=== PATIENT | male | born 1965 | race Caucasian/White ===

== ENCOUNTER 2019-10-08 13:13 | Inpatient (IN) | payer MEDICARE, MEDICAID ==
[~2019-10-08] VITALS: Ht 167.6 cm; Wt 63.9 kg
--- NOTE | 2019-10-08 13:47 | NUR ---
PT CAME IN CO OF CHEST PAIN AND SOB SINCE LAST NIGHT. PT HAS HX OF COPD. MOVED TO [place] RECENTLY FROM [place] AND IS NORMALLY SUPPOSED TO BE ON 2 LITERS OF 02 ALL THE TIME BUT HE RAN OUT. HE ALSO RAN OUT OF HIS RX FOR HIS COPD. EKG DONE. PT IS 100% ON 2 LITERS VIA NC. BLANKET PROVIDED. CALL LIGHT WITHIN REACH
[2019-10-08] MEDS ORDERED: methylPREDNISolone SOD SUCC 125 MG/2 ML ONE (13:52)
[2019-10-08] MEDS ORDERED: FENTANYL PF 100 MCG/2ML ONE (13:52)
[2019-10-08] MEDS ORDERED: FENTANYL PF 100 MCG/2ML IV ONE (14:00)
[2019-10-08] MEDS ORDERED: methylPREDNISolone SOD SUCC 125 MG/2 ML IV ONE (14:00)
[2019-10-08 14:05] LABS: BASOPHILS # (AUTO) 0.03 x10^3/uL (0-0.1); BASOPHILS % (AUTO) 0 % (0-1); EOSINOPHILS # (AUTO) 0.11 x10^3/uL (0-0.4); EOSINOPHILS % (AUTO) 1 % (1-7); LYMPHOCYTES # (AUTO) 2.12 x10^3/uL (1-3.4); LYMPHOCYTES % (AUTO) 18 % (22-44); MD NO; MEAN CORPUSCULAR HEMOGLOBIN 31.2 pg (27.5-34.5); MEAN CORPUSCULAR HGB CONC 32.6 g/dL (33.2-36.2); MEAN CORPUSCULAR VOLUME 95.7 fL (81-97); MEAN PLATELET VOLUME 8.7 fL (7.4-10.4); MONOCYTES % (AUTO) 11 % (2-9); NEUTROPHILS # (AUTO) 8.08 x10^3/uL (1.8-6.8); NEUTROPHILS % (AUTO) 69 % (42-75); PLATELET COUNT 217 x10^3/uL (130-400); RED BLOOD COUNT 5.15 x10^6/uL (4.38-5.82)
[2019-10-08 14:15] LABS: ALBUMIN 2.9 g/dL (3.4-5.0); CALCIUM 9.3 mg/dL (8.5-10.1); CHLORIDE 102 mmol/L (98-107); CREATININE 0.87 mg/dL (0.7-1.3)
[2019-10-08 14:18] LABS: D-DIMER 0.49 ug/mlFEU (0.00-0.52); INTERNATIONAL NORMALIZED RATIO 1.09 (0.93-1.1); PROTHROMBIN TIME 11.6 Seconds (9.6-11.5)
[2019-10-08 14:19] LABS: TROPONIN I < 0.015 ng/mL (0.000-0.045)
[2019-10-08 14:22] LABS: ANION GAP 7 mmol/L (5-15)
[2019-10-08] MEDS ORDERED: ALBUTEROL SULFATE 2.5 MG/3 ML NPPB SCH (15:30)
[2019-10-08] MEDS ORDERED: ONDANSETRON 2MG/ML, 2ML IVPush PRN (16:00)
[2019-10-08] MEDS ORDERED: ONDANSETRON ODT 4 MG PO PRN (16:00)
[2019-10-08] MEDS ORDERED: POLYETHYLENE GLYCOL 17 GM PACKET PO PRN (16:00)
[2019-10-08] MEDS ORDERED: ACETAMINOPHEN 325 MG TABLET PO PRN (16:00)
[2019-10-08] MEDS ORDERED: DOCUSATE 100 MG CAPSULE PO PRN (16:00)
--- NOTE | 2019-10-08 16:25 | NUR ---
PT RESTING IN [facility]. WATCHING TV. AWAITING A BED TO OPEN UP UPSTAIRS
[2019-10-08 17:13] VITALS: BP 132/87
[2019-10-08] MEDS: ENOXAPARIN 40 MG/0.4 ML SQ SCH (18:02)
[2019-10-08] MEDS ORDERED: BUDESONIDE 0.5 MG/2 ML INHA NPPB SCH (21:00)
[2019-10-08] MEDS: BUDESONIDE 0.5 MG/2 ML INHA INH SCH (21:00)
[2019-10-08 21:34] VITALS: BP 116/84
[2019-10-09 02:00] VITALS: BP 124/71
[2019-10-09 06:52] VITALS: BP 112/66
[2019-10-09] MEDS: BUDESONIDE 0.5 MG/2 ML INHA INH SCH ×2 (10:05→18:37)
[2019-10-09] MEDS ORDERED: DIVA500T2 PO (10:44)
[2019-10-09] MEDS ORDERED: GABA600T7 PO (10:44)
[2019-10-09] MEDS ORDERED: PRAZ1CAP2 PO (10:44)
[2019-10-09 12:00] VITALS: BP 116/81
[2019-10-09] MEDS: GABAPENTIN 300 MG CAPSULE PO SCH ×2 (15:08→20:26)
[2019-10-09] MEDS: ENOXAPARIN 40 MG/0.4 ML SQ SCH (15:08)
[2019-10-09] MEDS: DOXYCYCLINE 100MG CAP PO SCH ×2 (15:08→20:28)
[2019-10-09 19:25] VITALS: BP 117/76
[2019-10-09] MEDS ORDERED: PRAZOSIN 1 MG CAPSULE PO SCH (21:00)
[2019-10-09] MEDS ORDERED: DIVALPROEX 500 MG TABLET.DR PO SCH (21:00)
[2019-10-10 03:00] VITALS: BP 100/65
[2019-10-10 06:12] LABS: BASOPHILS # (AUTO) 0.01 x10^3/uL (0-0.1); BASOPHILS % (AUTO) 0 % (0-1); EOSINOPHILS # (AUTO) 0.01 x10^3/uL (0-0.4); EOSINOPHILS % (AUTO) 0 % (1-7); LYMPHOCYTES # (AUTO) 2.71 x10^3/uL (1-3.4); LYMPHOCYTES % (AUTO) 20 % (22-44); MD NO; MEAN CORPUSCULAR HEMOGLOBIN 31.1 pg (27.5-34.5); MEAN CORPUSCULAR HGB CONC 32.3 g/dL (33.2-36.2); MEAN CORPUSCULAR VOLUME 96.2 fL (81-97); MEAN PLATELET VOLUME 8.3 fL (7.4-10.4); MONOCYTES # (AUTO) 1.24 x10^3/uL (0.2-0.8); MONOCYTES % (AUTO) 9 % (2-9); NEUTROPHILS # (AUTO) 9.33 x10^3/uL (1.8-6.8); NEUTROPHILS % (AUTO) 70 % (42-75); PLATELET COUNT 278 x10^3/uL (130-400); RED BLOOD COUNT 4.74 x10^6/uL (4.38-5.82); RED CELL DISTRIBUTION WIDTH 14.2 % (9.4-14.8)
[2019-10-10 06:17] LABS: ALBUMIN 2.5 g/dL (3.4-5.0); ANION GAP 5 mmol/L (5-15); CALCIUM 9.3 mg/dL (8.5-10.1); CHLORIDE 104 mmol/L (98-107); CREATININE 0.95 mg/dL (0.7-1.3)
[2019-10-10 06:59] VITALS: BP 91/61
[2019-10-10] MEDS: BUDESONIDE 0.5 MG/2 ML INHA INH SCH ×2 (08:03→19:02)
[2019-10-10] MEDS: GABAPENTIN 300 MG CAPSULE PO SCH ×2 (08:43→15:35)
[2019-10-10] MEDS: DOXYCYCLINE 100MG CAP PO SCH (08:43)
[2019-10-10 12:09] VITALS: BP 110/76
[2019-10-10] MEDS ORDERED: PRED20TA PO (12:59)
[2019-10-10] MEDS: ENOXAPARIN 40 MG/0.4 ML SQ SCH (15:35)
[2019-10-10 18:08] VITALS: BP 114/72
== END 2019-10-10 19:13 | disposition home or self-care (01) | DRG 189 ==
LOC: ED 14:55 → EDIP 15:01 → 3N 17:10
PROVIDERS: ADMIT Hospitalist; ATTEND Family Medicine
DX: J96.21 Acute and chronic respiratory failure with hypoxia (principal); J44.1 Chronic obstructive pulmonary disease with (acute) exacerbation; E46 Unspecified protein-calorie malnutrition; D72.829 Elevated white blood cell count, unspecified; E11.9 Type 2 diabetes mellitus without complications; F17.200 Nicotine dependence, unspecified, uncomplicated; G89.29 Other chronic pain; M41.9 Scoliosis, unspecified; Z85.118 Personal history of other malignant neoplasm of bronchus and lung; Z87.01 Personal history of pneumonia (recurrent); Z68.22 Body mass index [BMI] 22.0-22.9, adult
CPT/HCPCS: 36415; 71045; 80048; 80069; 82040; 83036; 83735; 83880; 84145; 84484; 85025; 85379; 85610; 85730; 93005; 94640; 99285; G0378; J1650; J3010; J7626; J2930; J7512

== ENCOUNTER 2019-10-22 17:46 | Emergency (ER) | payer MEDICARE, MEDICAID ==
[~2019-10-22] VITALS: Ht 167.6 cm; Wt 66.2 kg
[~2019-10-22 17:46] MED LIST: DIVA500T2 PO; GABA600T7 PO; PRAZ1CAP2 PO; PRED20TA PO
[2019-10-22] MEDS ORDERED: KETOROLAC 30 MG/1 ML ONE (18:20)
[2019-10-22] MEDS ORDERED: ASPIRIN 81 MG TABLET CHEW ONE (18:20)
[2019-10-22] MEDS ORDERED: methylPREDNISolone SOD SUCC 125 MG/2 ML ONE (18:20)
[2019-10-22] MEDS ORDERED: ALBUTEROL/IPRATROPIUM 2.5MG/0.5MG, 3 ML ONE (18:29)
[2019-10-22] MEDS ORDERED: ALBUTEROL/IPRATROPIUM 2.5MG/0.5MG, 3 ML NPPB ONE (18:30)
[2019-10-22] MEDS ORDERED: KETOROLAC 30 MG/1 ML IVPush ONE (18:30)
[2019-10-22] MEDS ORDERED: methylPREDNISolone SOD SUCC 125 MG/2 ML IVPush SCH (18:30)
[2019-10-22] MEDS ORDERED: ASPIRIN 81 MG TABLET CHEW PO ONE (18:30)
[2019-10-22] MEDS ORDERED: SODIUM CHLORIDE FLUSH 10ML SYR IVF ONE (18:30)
[2019-10-22 18:55] LABS: BASOPHILS # (AUTO) 0.04 x10^3/uL (0-0.1); BASOPHILS % (AUTO) 0 % (0-1); EOSINOPHILS # (AUTO) 0.05 x10^3/uL (0-0.4); EOSINOPHILS % (AUTO) 1 % (1-7); LYMPHOCYTES # (AUTO) 1.95 x10^3/uL (1-3.4); LYMPHOCYTES % (AUTO) 18 % (22-44); MD NO; MEAN CORPUSCULAR HEMOGLOBIN 30.9 pg (27.5-34.5); MEAN CORPUSCULAR HGB CONC 32.4 g/dL (33.2-36.2); MEAN CORPUSCULAR VOLUME 95.3 fL (81-97); MEAN PLATELET VOLUME 8.3 fL (7.4-10.4); MONOCYTES # (AUTO) 1.04 x10^3/uL (0.2-0.8); MONOCYTES % (AUTO) 10 % (2-9); NEUTROPHILS # (AUTO) 7.74 x10^3/uL (1.8-6.8); NEUTROPHILS % (AUTO) 72 % (42-75); PLATELET COUNT 300 x10^3/uL (130-400); RED BLOOD COUNT 4.73 x10^6/uL (4.38-5.82); RED CELL DISTRIBUTION WIDTH 14.8 % (9.4-14.8)
--- NOTE | 2019-10-22 19:04 | NUR ---
PT CAME IN FOR CHEST PAIN AND SOB. EKG HAS BEEN COMPLETED. PT IS HOOKED UP TO HEEL FORMER, PULSE O, AND BP CUFF. CALL LIGHT WITHIN REACH. FRIEND IS BEDSIDE. BLANKET PROVIDED.
[2019-10-22 19:07] LABS: ALANINE AMINOTRANSFERASE 24 U/L (12-78); ALBUMIN 3.1 g/dL (3.4-5.0); CALCIUM 8.8 mg/dL (8.5-10.1); CREATININE 1.03 mg/dL (0.7-1.3)
[2019-10-22 19:12] LABS: ALKALINE PHOSPHATASE 80 U/L (45-117); BILIRUBIN,TOTAL 0.8 mg/dL (0.2-1.0); TOTAL PROTEIN 7.6 g/dL (6.4-8.2); TROPONIN I < 0.015 ng/mL (0.000-0.045)
[2019-10-22 19:13] LABS: ANION GAP 3 mmol/L (5-15); CHLORIDE 104 mmol/L (98-107)
[2019-10-22 19:35] VITALS: BP 121/76
--- NOTE | 2019-10-22 19:36 | NUR ---
PT RESTING IN [facility]. AWAITING LAB RESULTS. WATCHING TV. NO NEEDS AT THIS TIME
== END 2019-10-22 20:21 | disposition home or self-care (01) ==
LOC: ED 19:25
DX: J44.1 Chronic obstructive pulmonary disease with (acute) exacerbation (principal); R07.89 Other chest pain; E11.9 Type 2 diabetes mellitus without complications; Z85.118 Personal history of other malignant neoplasm of bronchus and lung
CPT/HCPCS: 36415; 71045; 80053; 83880; 84484; 85025; 85379; 93005; 94640; 96374; 96375; 99285; J1885; J2930; J7620

== ENCOUNTER 2019-11-02 11:23 | Emergency (ER) | payer MEDICARE, MEDICAID ==
[~2019-11-02] VITALS: Ht 167.6 cm; Wt 63.0 kg
[2019-11-02 11:34] VITALS: BP 123/60
[2019-11-02 12:30] LABS: RAPID INFLUENZA A POSITIVE (Negative); RAPID INFLUENZA B Negative (Negative)
== END 2019-11-02 13:58 | disposition home or self-care (01) ==
LOC: ED 13:51
DX: J10.1 Influenza due to other identified influenza virus with other respiratory manifestations (principal); E11.9 Type 2 diabetes mellitus without complications; J44.9 Chronic obstructive pulmonary disease, unspecified
CPT/HCPCS: 71046; 87081; 87147; 87400; 87880; 99284

== ENCOUNTER 2020-09-03 02:05 | Emergency (ER) | payer MEDICARE, MEDICAID ==
[~2020-09-03] VITALS: Ht 167.6 cm; Wt 66.4 kg
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
[2020-09-03] MEDS ORDERED: DIAZEPAM 5 MG/ML, 10ML VIAL IV ONE (03:00)
[2020-09-03] MEDS ORDERED: KETOROLAC 30 MG/1 ML IVPush ONE (03:00)
[2020-09-03] MEDS ORDERED: LIDODERM 5% PATCH TD ONE ×2 (03:00→03:11)
[2020-09-03] MEDS ORDERED: KETOROLAC 30 MG/1 ML ONE (03:11)
[2020-09-03] MEDS ORDERED: DIAZEPAM 5 MG/ML, 2ML ONE (03:11)
[2020-09-03 03:31] LABS: BASOPHILS % (AUTO) 1 % (0-1); EOSINOPHILS % (AUTO) 3 % (1-7); LYMPHOCYTES % (AUTO) 29 % (22-44); MEAN CORPUSCULAR HEMOGLOBIN 31.3 pg (27.5-34.5); MEAN CORPUSCULAR HGB CONC 33.3 g/dL (33.2-36.2); MEAN PLATELET VOLUME 8.4 fL (7.4-10.4); MONOCYTES % (AUTO) 10 % (2-9); NEUTROPHILS % (AUTO) 57 % (42-75); PLATELET COUNT 192 x10^3/uL (130-400); RED BLOOD COUNT 5.09 x10^6/uL (4.38-5.82); RED CELL DISTRIBUTION WIDTH 14.1 % (9.4-14.8)
[2020-09-03 03:32] LABS: MD NO
--- NOTE | 2020-09-03 03:47 | NUR ---
LAB IN ROOM TO RE DRAW BLOOD.
[2020-09-03 04:04] LABS: ALBUMIN 3.5 g/dL (3.4-5.0); ANION GAP 0 mmol/L (5-15); CALCIUM 8.7 mg/dL (8.5-10.1); CHLORIDE 110 mmol/L (98-107)
[2020-09-03 04:10] LABS: CREATININE 0.86 mg/dL (0.7-1.3); TROPONIN I < 0.015 ng/mL (0.000-0.045)
[2020-09-03 04:59] VITALS: BP 132/79
--- NOTE | 2020-09-03 05:00 | NUR ---
TAXI VOUCHER GIVEN TO PATIENT. PT VERBALIZES UNDERSTANDING OF DC INSTRUCTIONS.
== END 2020-09-03 05:04 | disposition home or self-care (01) ==
LOC: ED 05:02
DX: S39.012A Strain of muscle, fascia and tendon of lower back, initial encounter (principal); S29.012A Strain of muscle and tendon of back wall of thorax, initial encounter; R07.9 Chest pain, unspecified; R94.31 Abnormal electrocardiogram [ECG] [EKG]; J44.9 Chronic obstructive pulmonary disease, unspecified; E11.9 Type 2 diabetes mellitus without complications; Z87.891 Personal history of nicotine dependence; X58.XXXA Exposure to other specified factors, initial encounter; Y93.89 Activity, other specified; Y92.89 Other specified places as the place of occurrence of the external cause; Y99.8 Other external cause status
CPT/HCPCS: 36415; 71045; 80048; 82040; 84484; 85025; 93005; 96374; 96375; 99285; J1885; J3360

== ENCOUNTER 2020-09-06 14:48 | Emergency (ER) | payer MEDICARE, MEDICAID ==
[~2020-09-06] VITALS: Ht 165.1 cm; Wt 67.6 kg
--- NOTE | 2020-09-06 15:30 | NUR ---
pt presents to ED with c/o bilateral lower back pain for past 6 days since last seizure. pt is a&ox4, resps even and unlabored, neuro intact. pt denies bowel/bladder dysfunction. bp and spo2 monitors in place .call light in reach. awaiting MD and orders.
--- NOTE | 2020-09-06 15:35 | NUR ---
JOMAR DYE AT BEDSIDE.
[2020-09-06] MEDS ORDERED: CYCLOBENZAPRINE 10 MG TABLET PO ONE (16:00)
[2020-09-06] MEDS ORDERED: HYDROcodone/APAP 5/325 TABLET PO ONE (16:00)
[2020-09-06] MEDS ORDERED: CYCLOBENZAPRINE 10 MG TABLET ONE (16:07)
[2020-09-06] MEDS ORDERED: HYDROcodone/APAP 5/325 TABLET ONE (16:08)
--- NOTE | 2020-09-06 16:19 | NUR ---
pt medicated per emar, tolerated well. awaiting discharge orders.
--- NOTE | 2020-09-06 16:48 | NUR ---
PT REPORTS "I'M NOT FEELING THAT MUCH BETTER" S/P MEDS, JOMAR DYE NOTIFIED. PT TO BE DISCHARGED, AWAITING ORDERS AND PAPERWORK.
[2020-09-06 17:43] VITALS: BP 102/86
--- NOTE | 2020-09-06 17:53 | NUR ---
pt given dc instructions and script, educated regarding rx for flexiril. pt a&o, resps even and unlabored. pt reports pain improved s/p meds. pt did not bring his portable oxygen, plans to taxi home (5 min commute). JOMAR Jensen notified, ok'd pt to taxi home without portable oxygen as ED cannot provide. pt to connect to oxygen concentrator for baseline oxygen at 2L/min. pt ambulatory to dc desk with steady gait. all questions answered.
== END 2020-09-06 17:59 | disposition home or self-care (01) ==
LOC: ED 15:39
DX: S39.012A Strain of muscle, fascia and tendon of lower back, initial encounter (principal); S29.012A Strain of muscle and tendon of back wall of thorax, initial encounter; E11.9 Type 2 diabetes mellitus without complications; J44.9 Chronic obstructive pulmonary disease, unspecified; Z88.0 Allergy status to penicillin; Z88.9 Allergy status to unspecified drugs, medicaments and biological substances; Z87.891 Personal history of nicotine dependence; Z85.118 Personal history of other malignant neoplasm of bronchus and lung; X58.XXXA Exposure to other specified factors, initial encounter; Y93.89 Activity, other specified; Y92.89 Other specified places as the place of occurrence of the external cause; Y99.8 Other external cause status
CPT/HCPCS: 99283

== ENCOUNTER 2020-09-13 07:33 | Emergency (ER) | payer MEDICARE, MEDICAID ==
[~2020-09-13] VITALS: Ht 167.6 cm; Wt 67.3 kg
--- NOTE | 2020-09-13 07:42 | NUR ---
air defense specialist: EKG completed in triage
[2020-09-13] MEDS ORDERED: DIAZEPAM 5 MG TABLET ONE (08:06)
[2020-09-13] MEDS ORDERED: KETOROLAC 30 MG/1 ML ONE (08:06)
[2020-09-13] MEDS ORDERED: DIAZEPAM 5 MG TABLET PO ONE (08:30)
[2020-09-13] MEDS ORDERED: KETOROLAC 30 MG/1 ML IM ONE (08:30)
[2020-09-13 08:56] VITALS: BP 140/88
== END 2020-09-13 09:53 | disposition home or self-care (01) ==
LOC: ED 08:42
DX: S29.012A Strain of muscle and tendon of back wall of thorax, initial encounter (principal); J42 Unspecified chronic bronchitis; R06.02 Shortness of breath; E11.9 Type 2 diabetes mellitus without complications; Z87.891 Personal history of nicotine dependence; Z85.118 Personal history of other malignant neoplasm of bronchus and lung; X58.XXXA Exposure to other specified factors, initial encounter; Y93.89 Activity, other specified; Y92.89 Other specified places as the place of occurrence of the external cause; Y99.8 Other external cause status
CPT/HCPCS: 93005; 96372; 99283; J1885

== ENCOUNTER 2020-10-29 23:45 | Emergency (ER) | payer MEDICARE, MEDICAID ==
[~2020-10-29] VITALS: Ht 165.1 cm; Wt 67.1 kg
--- NOTE | 2020-10-30 00:11 | NUR ---
Pt arrived to room 33, assumed care.
--- NOTE | 2020-10-30 00:24 | NUR ---
Pt reports he has numbness in feet and lower legs bilaterally, states this is normal for him. Reports itching and pain in legs bilaterally. Slight redness probably from itching, but no rash noted on legs or anywhere else on body. Pt hx COPD, normally wears 2L 02, does not have portable tank, walked her from sober living house without 02. Has 02 at sober living house. Currently 98% on 2L nasal cannula.
--- NOTE | 2020-10-30 01:00 | NUR ---
Provider at bedside.
--- NOTE | 2020-10-30 01:07 | NUR ---
Provided pt additional blanket
[2020-10-30] MEDS ORDERED: GABAPENTIN 300 MG CAPSULE ONE (01:09)
[2020-10-30] MEDS ORDERED: GABAPENTIN 300 MG CAPSULE PO ONE (01:30)
[2020-10-30 01:42] VITALS: BP 125/83
--- NOTE | 2020-10-30 01:53 | NUR ---
Pt discharged with cab voucher back to sober living house.
== END 2020-10-30 01:56 | disposition home or self-care (01) ==
LOC: ED 10-30 01:03
DX: E11.40 Type 2 diabetes mellitus with diabetic neuropathy, unspecified (principal); G25.81 Restless legs syndrome; Z76.0 Encounter for issue of repeat prescription; R94.31 Abnormal electrocardiogram [ECG] [EKG]; J44.9 Chronic obstructive pulmonary disease, unspecified
CPT/HCPCS: 93005; 99283

== ENCOUNTER 2020-12-18 13:51 | Inpatient (IN) | payer MEDICARE, MEDICAID ==
[~2020-12-18] VITALS: Ht 167.6 cm; Wt 72.9 kg
[~2020-12-18 13:51] MED LIST changes: +ALBU90AE2 INH; +DIVA-61 PO; +OXYC5TAB98 PO
--- NOTE | 2020-12-18 14:09 | NUR ---
BIBA FROM PCP'S OFFICE FOR HYPOXIA AT 77% RA, PT REPORTS INCREASE WOB X3 DAYS, RECEIVED FIRST DOSE OF COVID VACCINE YESTERDAY. PT ARRIVED ON 2L NC WITH O2 SAT 95%. DENIES CP AT THIS TIME. PT PLACED ON VITALS AND CARDIAC MONITORS.
[2020-12-18 14:30] LABS: BASOPHILS % (AUTO) 1 % (0-1); EOSINOPHILS % (AUTO) 9 % (1-7); LYMPHOCYTES % (AUTO) 26 % (22-44); MEAN CORPUSCULAR HEMOGLOBIN 31.6 pg (27.5-34.5); MEAN CORPUSCULAR HGB CONC 32.4 g/dL (33.2-36.2); MEAN PLATELET VOLUME 8.6 fL (7.4-10.4); MONOCYTES % (AUTO) 12 % (2-9); NEUTROPHILS % (AUTO) 51 % (42-75); PLATELET COUNT 135 x10^3/uL (130-400); RED BLOOD COUNT 4.63 x10^6/uL (4.38-5.82); RED CELL DISTRIBUTION WIDTH 15.3 % (9.4-14.8)
[2020-12-18] MEDS ORDERED: methylPREDNISolone SOD SUCC 125 MG/2 ML IV ONE (14:30)
[2020-12-18] MEDS ORDERED: ALBUTEROL/IPRATROPIUM 2.5MG/0.5MG, 3 ML NPPB SCH (14:30)
[2020-12-18 14:32] LABS: MD NO
[2020-12-18 14:43] LABS: ALANINE AMINOTRANSFERASE 21 U/L (12-78); ALBUMIN 3.5 g/dL (3.4-5.0); CALCIUM 8.8 mg/dL (8.5-10.1); CREATININE 0.71 mg/dL (0.7-1.3)
[2020-12-18 14:47] LABS: ALKALINE PHOSPHATASE 62 U/L (45-117); BILIRUBIN,TOTAL 1.2 mg/dL (0.2-1.0); TOTAL PROTEIN 6.6 g/dL (6.4-8.2); TROPONIN I < 0.015 ng/mL (0.000-0.045)
[2020-12-18] MEDS ORDERED: ALBUTEROL/IPRATROPIUM 2.5MG/0.5MG, 3 ML ONE (14:55)
[2020-12-18] MEDS ORDERED: LORazepam 1MG TABLET ONE (14:55)
[2020-12-18] MEDS ORDERED: LORazepam 1MG TABLET PO ONE (15:00)
[2020-12-18 15:01] LABS: ANION GAP 4 mmol/L (5-15); CHLORIDE 103 mmol/L (98-107)
--- NOTE | 2020-12-18 15:02 | NUR ---
PT REPORTED CHEST DISCOMFORT 03/09, REPORTED CHANGE TO DR. MCGHEE. PT MEDICATED PER OCT.
--- NOTE | 2020-12-18 15:28 | NUR ---
PT SEEMS COMFORTABLE IN NAD, VSS. AWAITING CT SCAN.
--- NOTE | 2020-12-18 16:18 | NUR ---
PT BACK FROM CT. PROVIDED URINAL.
[2020-12-18] MEDS ORDERED: OMNIPAQUE 350 MG/ML, 75ML BOTTLE ONE (16:27)
[2020-12-18] MEDS ORDERED: ASPIRIN 81 MG TABLET CHEW PO ONE (17:30)
[2020-12-18] MEDS ORDERED: ASPIRIN 81 MG TABLET CHEW ONE (17:31)
--- NOTE | 2020-12-18 18:01 | NUR ---
REPORT TO ENRIQUE PATEL.
[2020-12-18] MEDS ORDERED: ENALAPRILAT 1.25 MG/ML, 2ML IVPush PRN (19:00)
[2020-12-18] MEDS ORDERED: DOCUSATE 100 MG CAPSULE PO PRN (19:00)
[2020-12-18] MEDS ORDERED: LIDODERM 5% PATCH TD PRN (19:00)
[2020-12-18] MEDS ORDERED: OXYcodone IR 5MG TABLET PO PRN (19:00)
[2020-12-18] MEDS ORDERED: ACETAMINOPHEN 325 MG TABLET PO PRN (19:00)
[2020-12-18] MEDS ORDERED: TEMAZEPAM 15 MG CAPSULE PO PRN (19:00)
[2020-12-18] MEDS ORDERED: MELATONIN 5 MG TABLET PO PRN (19:00)
[2020-12-18 20:09] VITALS: BP 124/79
[2020-12-18 20:47] LABS: TROPONIN I < 0.015 ng/mL (0.000-0.045)
[2020-12-18 22:01] LABS: AMPHETAMINE SCREEN, URINE Negative (Negative); BARBITURATE SCREEN, URINE Negative (Negative); BENZODIAZEPINE SCREEN, URINE Negative (Negative); CANNABINOID SCREEN, URINE Positive (Negative); COCAINE SCREEN, URINE Negative (Negative); METHADONE SCREEN, URINE Negative (Negative); OPIATE SCREEN, URINE Negative (Negative)
[2020-12-18 22:54] VITALS: BP 128/78
[2020-12-19 00:47] VITALS: BP 109/68
[2020-12-19] MEDS ORDERED: ALBUTEROL HFA 90 MCG/SPRAY INH PRN (02:00)
[2020-12-19 02:16] LABS: BASOPHILS % (AUTO) 1 % (0-1); EOSINOPHILS % (AUTO) 0 % (1-7); LYMPHOCYTES % (AUTO) 13 % (22-44); MD NO; MEAN CORPUSCULAR HEMOGLOBIN 31.4 pg (27.5-34.5); MEAN CORPUSCULAR HGB CONC 32.3 g/dL (33.2-36.2); MEAN PLATELET VOLUME 8.6 fL (7.4-10.4); MONOCYTES % (AUTO) 11 % (2-9); NEUTROPHILS % (AUTO) 76 % (42-75); PLATELET COUNT 143 x10^3/uL (130-400); RED BLOOD COUNT 4.53 x10^6/uL (4.38-5.82); RED CELL DISTRIBUTION WIDTH 14.8 % (9.4-14.8)
[2020-12-19 02:25] LABS: ANION GAP 2 mmol/L (5-15); CHLORIDE 103 mmol/L (98-107); CREATININE 0.83 mg/dL (0.7-1.3)
[2020-12-19 02:35] LABS: TROPONIN I < 0.015 ng/mL (0.000-0.045)
[2020-12-19] MEDS ORDERED: ASPIRIN 81 MG TABLET EC PO SCH (06:00)
[2020-12-19 07:30] VITALS: BP 119/75
[2020-12-19] MEDS ORDERED: ACETAMINOPHEN 325 MG TABLET PO PRN (08:30)
[2020-12-19] MEDS ORDERED: ENOXAPARIN 40 MG/0.4 ML SQ SCH (08:30)
[2020-12-19] MEDS ORDERED: SODIUM CHLORIDE 0.9% 1,000 ML IV SCH (08:30)
[2020-12-19 13:25] VITALS: BP 125/81
== END 2020-12-19 15:00 | disposition home or self-care (01) | DRG 189 ==
LOC: ED 17:19 → EDIP 17:20 → ED 17:25 → 5SO 18:18 → DCLOUNGE 12-19 14:54
PROVIDERS: ADMIT Internal Medicine; ATTEND Internal Medicine
DX: J96.01 Acute respiratory failure with hypoxia (principal); J44.1 Chronic obstructive pulmonary disease with (acute) exacerbation; I10 Essential (primary) hypertension; E11.40 Type 2 diabetes mellitus with diabetic neuropathy, unspecified; F12.10 Cannabis abuse, uncomplicated; M41.9 Scoliosis, unspecified; G47.33 Obstructive sleep apnea (adult) (pediatric); G89.29 Other chronic pain; Z76.5 Malingerer [conscious simulation]; Z85.118 Personal history of other malignant neoplasm of bronchus and lung; Z87.891 Personal history of nicotine dependence; Z99.81 Dependence on supplemental oxygen; Z88.0 Allergy status to penicillin; Z88.6 Allergy status to analgesic agent; Z88.8 Allergy status to other drugs, medicaments and biological substances
CPT/HCPCS: 36415; 71045; 71260; 80048; 80053; 80307; 83735; 84443; 84484; 85025; 85379; 93005; G0378; J1650; Q9967; J7030; J7512

== ENCOUNTER 2021-02-07 01:24 | Emergency (ER) | payer MEDICARE, MEDICAID ==
[~2021-02-07] VITALS: Ht 165.1 cm; Wt 75.0 kg
[~2021-02-07 01:24] MED LIST changes: +BUSP10TA PO; +ESCI20TA8 PO; +HYDR-826 PO; +MIRT-15 PO; +QUET25TA7 PO
--- NOTE | 2021-02-07 01:35 | NUR ---
pt josea, pt stating he is feeling swollen from after he woke up from his nap, he had made chicken wings with a new sauce and believes he is having an allergic reaction to that. pt in gown, hooked to monitor and resting on gue-SENS.
[2021-02-07 02:04] LABS: BASOPHILS % (AUTO) 1 % (0-1); EOSINOPHILS % (AUTO) 3 % (1-7); LYMPHOCYTES % (AUTO) 22 % (22-44); MEAN CORPUSCULAR HEMOGLOBIN 32.3 pg (27.5-34.5); MEAN CORPUSCULAR HGB CONC 33.3 g/dL (33.2-36.2); MEAN PLATELET VOLUME 8.8 fL (7.4-10.4); MONOCYTES % (AUTO) 16 % (2-9); NEUTROPHILS % (AUTO) 58 % (42-75); PLATELET COUNT 139 x10^3/uL (130-400); RED BLOOD COUNT 4.06 x10^6/uL (4.38-5.82); RED CELL DISTRIBUTION WIDTH 15.1 % (9.4-14.8)
[2021-02-07 02:11] LABS: ALANINE AMINOTRANSFERASE 30 U/L (12-78); ALBUMIN 3.2 g/dL (3.4-5.0); ANION GAP 1 mmol/L (5-15); CALCIUM 8.5 mg/dL (8.5-10.1); CHLORIDE 105 mmol/L (98-107); CREATININE 0.77 mg/dL (0.7-1.3)
[2021-02-07 02:16] LABS: ALKALINE PHOSPHATASE 64 U/L (45-117); BILIRUBIN,TOTAL 0.8 mg/dL (0.2-1.0); TOTAL PROTEIN 6.3 g/dL (6.4-8.2)
[2021-02-07] MEDS ORDERED: SODIUM CHLORIDE 0.9% 1,000ML IVBOLUS ONE (03:00)
--- NOTE | 2021-02-07 05:07 | NUR ---
pt up to bathroom, pt resting on gurney, denies needs at this time.
--- NOTE | 2021-02-07 05:23 | NUR ---
ELIZABETH BARRIENTOS APPLIED TO PT'S LEGS, PT AWAITING TRANSPORT DUE TO OXYGEN NEEDS.
[2021-02-07 06:15] VITALS: BP 112/70
--- NOTE | 2021-02-07 06:18 | NUR ---
PT TO BE TRANSPORTED HOME VIA [facility] DUE TO NEED FOR CONTINUOUS O2, 3L. PT PROVIDED D/C INSTRUCTIONS, VERBALIZED UNDERSTAING. PT DENIES ANY OTHER QUESTIONS OR CONCERNS AT THIS TIME. AWAITING TRANSPORT HOME.
--- NOTE | 2021-02-07 06:22 | NUR ---
PT D/C WITH [facility]. TO AMBULANCE VIA WHEELCHAIR AND O2. AMBULATORY WITH STEADY GAIT FROM WHEELCHAIR TO AMBULANCE.
[2021-02-16] MEDS ORDERED: DOXY100T PO ×2 (11:42)
[2021-02-16] MEDS ORDERED: PRED20TA PO ×2 (11:42)
== END 2021-02-07 06:24 | disposition home or self-care (01) ==
LOC: ED 01:38
DX: R60.0 Localized edema (principal); I11.0 Hypertensive heart disease with heart failure; I50.9 Heart failure, unspecified; M79.662 Pain in left lower leg; M79.661 Pain in right lower leg; J44.9 Chronic obstructive pulmonary disease, unspecified
CPT/HCPCS: 36415; 71045; 80053; 83880; 85025; 93005; 99285

== ENCOUNTER 2021-02-13 13:20 | Inpatient (IN) | payer MEDICARE, MEDICAID ==
[~2021-02-13] VITALS: Ht 167.6 cm; Wt 78.0 kg
--- NOTE | 2021-02-13 13:32 | NUR ---
PT BIB [facility] FOR [facility] X3 DAYS DUE TO DIFFICULTY BREATHING OFF CO2, WHICH PT HAS HAD ISSUES WITH IN THE PAST. PT HAS PART OF HIS LEFT LUNG MISSING AND COPD, AND SO IS ALWAYS ON 2-3L NC. PT'S END TIDAL PER FIRE WAS 56. PT RECLINED IN THE BED, SIDE RAILS UP, CALL LIGHT IN REACH. AWAITING ERMD EVAL. LIGHTS DIMMED FOR PT COMFORT.
[2021-02-13] MEDS ORDERED: METOCLOPRAMIDE 5 MG/ML, 2ML ONE (13:49)
[2021-02-13] MEDS ORDERED: METOCLOPRAMIDE 5 MG/ML, 2ML IVPush ONE (14:00)
[2021-02-13] MEDS ORDERED: METOCLOPRAMIDE 5 MG/ML, 2ML IM ONE (14:00)
--- NOTE | 2021-02-13 14:28 | NUR ---
PT RESTING IN BED, RESPIRATIONS EVEN AND SLIGHTLY LABORED ON NC. NEW NC PLACED FOR PT PREVIOUS ONE WAS FALLING OUT OF NOSE. PT 96% ON 4L NC. SIDE RAILS UP, CALL LIGHT IN REACH.
[2021-02-13 15:00] LABS: BASOPHILS % (AUTO) 0 % (0-1); EOSINOPHILS % (AUTO) 1 % (1-7); LYMPHOCYTES % (AUTO) 19 % (22-44); MEAN CORPUSCULAR HEMOGLOBIN 31.8 pg (27.5-34.5); MEAN CORPUSCULAR HGB CONC 32.2 g/dL (33.2-36.2); MEAN PLATELET VOLUME 7.8 fL (7.4-10.4); MONOCYTES % (AUTO) 16 % (2-9); NEUTROPHILS % (AUTO) 63 % (42-75); PLATELET COUNT 270 x10^3/uL (130-400); RED BLOOD COUNT 4.08 x10^6/uL (4.38-5.82); RED CELL DISTRIBUTION WIDTH 14.7 % (9.4-14.8)
[2021-02-13 15:12] LABS: ALANINE AMINOTRANSFERASE 32 U/L (12-78); ALBUMIN 3.1 g/dL (3.4-5.0); CALCIUM 8.6 mg/dL (8.5-10.1); CHLORIDE 104 mmol/L (98-107); CREATININE 0.62 mg/dL (0.7-1.3)
[2021-02-13 15:16] LABS: ALKALINE PHOSPHATASE 69 U/L (45-117); BILIRUBIN,TOTAL 0.6 mg/dL (0.2-1.0); TOTAL PROTEIN 6.4 g/dL (6.4-8.2)
--- NOTE | 2021-02-13 15:26 | NUR ---
REQUEST TO PHARMACY SENT FOR ABX. PT WITH BIPAP IN PLACE. NAD NOTED AT THIS TIME.
[2021-02-13 15:29] LABS: ANION GAP 3 mmol/L (5-15)
[2021-02-13] MEDS ORDERED: SODIUM CHLORIDE FLUSH 10ML SYR IVF ONE (15:30)
[2021-02-13] MEDS ORDERED: CEFEPIME 2 GM in DEXTROSE 5% 100 ML IVPB ONE (16:00)
--- NOTE | 2021-02-13 16:06 | NUR ---
FIRST ATTEMPT TO CALL FOR REPORT.
--- NOTE | 2021-02-13 16:29 | NUR ---
REPORT COMPLETED. RT CALLED FOR TRANSPORT. SECOND IV STARTED.
[2021-02-13] MEDS ORDERED: MIRTAZAPINE 30 MG TABLET PO PRN (16:30)
[2021-02-13] MEDS ORDERED: FUROSEMIDE 40 MG/4 ML IV ONE (16:30)
[2021-02-13] MEDS ORDERED: ONDANSETRON 2MG/ML, 2ML IVPush PRN (16:30)
[2021-02-13] MEDS ORDERED: hydrALAzine 20 MG/ML, 1ML IVPush PRN (16:30)
[2021-02-13] MEDS ORDERED: DOCUSATE 100 MG CAPSULE PO PRN (16:30)
[2021-02-13] MEDS ORDERED: ACETAMINOPHEN 325 MG TABLET PO PRN (16:30)
[2021-02-13] MEDS ORDERED: FUROSEMIDE 40 MG/4 ML ONE (16:31)
[2021-02-13] MEDS ORDERED: VANCOMYCIN 1,900 MG in SODIUM CHLORIDE 0.9% 250 ML IV ONE (17:00)
[2021-02-13] MEDS ORDERED: VANCOMYCIN PER PHARMACY MC ONE (17:00)
[2021-02-13 17:08] LABS: TROPONIN I < 0.015 ng/mL (0.000-0.045)
[2021-02-13] MEDS: methylPREDNISolone SOD SUCC 40 MG/ML IVPush SCH ×2 (17:16→23:03)
[2021-02-13] MEDS: ENOXAPARIN 40 MG/0.4 ML SQ SCH (17:16)
[2021-02-13] MEDS: MEROPENEM 1 GM in SODIUM CHLORIDE 0.9% 100 ML IV SCH (17:37)
[2021-02-13] MEDS: OXYcodone IR 5MG TABLET PO PRN (17:38)
[2021-02-13 17:54] LABS: MICROSCOPIC NOT IND
[2021-02-13] MEDS: ALBUTEROL/IPRATROPIUM 2.5MG/0.5MG, 3 ML HHN SCH (18:30)
[2021-02-13 19:48] VITALS: BP 106/64
[2021-02-13] MEDS: BUSPIRONE 10 MG TABLET PO SCH (20:25)
[2021-02-13] MEDS: SODIUM CHLORIDE FLUSH 10ML SYR IVF SCH (20:25)
[2021-02-13] MEDS: QUETIAPINE 25MG TABLET PO SCH (20:25)
[2021-02-13] MEDS: DIVALPROEX 500 MG TABLET.DR PO SCH (20:25)
[2021-02-13] MEDS: FAMOTIDINE 20 MG TABLET PO SCH (20:25)
[2021-02-13] MEDS: BUDESONIDE 0.5 MG/2 ML INHA INH SCH (21:10)
[2021-02-14] MEDS: OXYcodone IR 5MG TABLET PO PRN ×3 (01:20→17:59)
[2021-02-14] MEDS: ALBUTEROL/IPRATROPIUM 2.5MG/0.5MG, 3 ML HHN SCH ×4 (01:20→18:51)
[2021-02-14] MEDS: MEROPENEM 1 GM in SODIUM CHLORIDE 0.9% 100 ML IV SCH ×3 (02:03→17:58)
[2021-02-14 04:30] LABS: BASOPHILS % (AUTO) 1 % (0-1); EOSINOPHILS % (AUTO) 0 % (1-7); LYMPHOCYTES % (AUTO) 6 % (22-44); MEAN CORPUSCULAR HEMOGLOBIN 32.3 pg (27.5-34.5); MONOCYTES % (AUTO) 2 % (2-9); NEUTROPHILS % (AUTO) 92 % (42-75); PLATELET COUNT 235 x10^3/uL (130-400); RED BLOOD COUNT 3.95 x10^6/uL (4.38-5.82); RED CELL DISTRIBUTION WIDTH 14.7 % (9.4-14.8)
[2021-02-14 04:42] LABS: ANION GAP 2 mmol/L (5-15); CALCIUM 8.6 mg/dL (8.5-10.1); CHLORIDE 99 mmol/L (98-107); CREATININE 0.89 mg/dL (0.7-1.3)
[2021-02-14] MEDS: methylPREDNISolone SOD SUCC 40 MG/ML IVPush SCH ×3 (04:49→17:58)
[2021-02-14] MEDS: SODIUM CHLORIDE 0.9% 250 ML IV SCH ×2 (05:29→15:31)
[2021-02-14] MEDS: INSULIN LISPRO 100 UNITS/ML, PEN SQ-INSULIN SCH ×4 (06:36→20:39)
[2021-02-14] MEDS: BUDESONIDE 0.5 MG/2 ML INHA INH SCH ×2 (07:09→18:51)
[2021-02-14] MEDS: BUSPIRONE 10 MG TABLET PO SCH ×2 (07:24→20:41)
[2021-02-14] MEDS: DIVALPROEX 500 MG TABLET.DR PO SCH ×2 (07:24→20:43)
[2021-02-14] MEDS: SODIUM CHLORIDE FLUSH 10ML SYR IVF SCH ×2 (07:24→20:41)
[2021-02-14] MEDS: CITALOPRAM 20 MG TABLET PO SCH (07:24)
[2021-02-14] MEDS: FAMOTIDINE 20 MG TABLET PO SCH ×2 (07:24→20:40)
[2021-02-14 14:47] VITALS: BP 104/68
[2021-02-14] MEDS: ENOXAPARIN 40 MG/0.4 ML SQ SCH (17:59)
[2021-02-14 19:03] VITALS: BP 108/70
[2021-02-14] MEDS: QUETIAPINE 25MG TABLET PO SCH (20:40)
[2021-02-15] MEDS: OXYcodone IR 5MG TABLET PO PRN ×4 (00:17→18:43)
[2021-02-15] MEDS: methylPREDNISolone SOD SUCC 40 MG/ML IVPush SCH ×3 (00:17→12:20)
[2021-02-15 00:22] VITALS: BP 110/67
[2021-02-15] MEDS: ALBUTEROL/IPRATROPIUM 2.5MG/0.5MG, 3 ML HHN SCH ×4 (01:00→19:00)
[2021-02-15] MEDS: MEROPENEM 1 GM in SODIUM CHLORIDE 0.9% 100 ML IV SCH ×3 (01:48→18:10)
[2021-02-15 06:54] VITALS: BP 135/86
[2021-02-15] MEDS: CITALOPRAM 20 MG TABLET PO SCH (07:59)
[2021-02-15] MEDS: BUSPIRONE 10 MG TABLET PO SCH ×2 (07:59→21:17)
[2021-02-15] MEDS: DIVALPROEX 500 MG TABLET.DR PO SCH ×2 (08:00→21:17)
[2021-02-15] MEDS: SODIUM CHLORIDE FLUSH 10ML SYR IVF SCH ×2 (08:00→21:18)
[2021-02-15] MEDS: FAMOTIDINE 20 MG TABLET PO SCH ×2 (08:00→21:17)
[2021-02-15] MEDS: INSULIN LISPRO 100 UNITS/ML, PEN SQ-INSULIN SCH ×4 (08:04→21:26)
[2021-02-15] MEDS: BUDESONIDE 0.5 MG/2 ML INHA INH SCH ×2 (08:53→19:46)
[2021-02-15 13:25] VITALS: BP 125/74
[2021-02-15] MEDS: ENOXAPARIN 40 MG/0.4 ML SQ SCH (18:10)
[2021-02-15 20:05] VITALS: BP 114/68
[2021-02-15] MEDS: QUETIAPINE 25MG TABLET PO SCH (21:17)
[2021-02-16] MEDS: methylPREDNISolone SOD SUCC 40 MG/ML IVPush SCH ×2 (00:24→11:30)
[2021-02-16] MEDS: OXYcodone IR 5MG TABLET PO PRN ×3 (00:25→15:15)
[2021-02-16 00:37] VITALS: BP 119/68
[2021-02-16] MEDS: ALBUTEROL/IPRATROPIUM 2.5MG/0.5MG, 3 ML HHN SCH ×3 (01:00→13:00)
[2021-02-16] MEDS: MEROPENEM 1 GM in SODIUM CHLORIDE 0.9% 100 ML IV SCH ×2 (02:07→09:47)
[2021-02-16] MEDS: SODIUM CHLORIDE 0.9% 250 ML IV SCH (05:30)
[2021-02-16] MEDS: BUDESONIDE 0.5 MG/2 ML INHA INH SCH (06:54)
[2021-02-16 06:59] VITALS: BP 133/80
[2021-02-16] MEDS: INSULIN LISPRO 100 UNITS/ML, PEN SQ-INSULIN SCH ×3 (07:47→16:00)
[2021-02-16] MEDS: SODIUM CHLORIDE FLUSH 10ML SYR IVF SCH (09:00)
[2021-02-16] MEDS: FAMOTIDINE 20 MG TABLET PO SCH (09:44)
[2021-02-16] MEDS: CITALOPRAM 20 MG TABLET PO SCH (09:44)
[2021-02-16] MEDS: BUSPIRONE 10 MG TABLET PO SCH (09:44)
[2021-02-16] MEDS: DIVALPROEX 500 MG TABLET.DR PO SCH (09:44)
[2021-02-16] MEDS ORDERED: OXYC5TAB98 PO (11:42)
[2021-02-16] MEDS ORDERED: DOXY100T PO (11:42)
[2021-02-16] MEDS ORDERED: TIOT18CA INH (11:42)
[2021-02-16] MEDS ORDERED: PRED20TA PO (11:42)
[2021-02-16] MEDS ORDERED: FLUT1AER PO (11:42)
[2021-02-16] MEDS ORDERED: DIVA-61 PO (11:42)
[2021-02-16 12:13] VITALS: BP 129/77
== END 2021-02-16 16:40 | disposition home health service (06) | DRG 193 ==
LOC: ED 14:26 → EDIP 15:38 → CCU 16:46 → 4NW 02-14 14:15
PROVIDERS: ADMIT Hospitalist; ATTEND Hospitalist
PROC: 5A09357 Assistance with Respiratory Ventilation, Less than 24 Consecutive Hours, Continuous Positive Airway Pressure (ICD-10-PCS; 2021-02-13)
PROC: 5A09357 Assistance with Respiratory Ventilation, Less than 24 Consecutive Hours, Continuous Positive Airway Pressure (ICD-10-PCS; principal; 2021-02-14)
PROC: 5A09357 Assistance with Respiratory Ventilation, Less than 24 Consecutive Hours, Continuous Positive Airway Pressure (ICD-10-PCS; 2021-02-15)
PROC: 5A09357 Assistance with Respiratory Ventilation, Less than 24 Consecutive Hours, Continuous Positive Airway Pressure (ICD-10-PCS; 2021-02-16)
DX: J18.0 Bronchopneumonia, unspecified organism (principal); J96.21 Acute and chronic respiratory failure with hypoxia; J96.22 Acute and chronic respiratory failure with hypercapnia; J44.0 Chronic obstructive pulmonary disease with (acute) lower respiratory infection; J44.1 Chronic obstructive pulmonary disease with (acute) exacerbation; G40.209 Localization-related (focal) (partial) symptomatic epilepsy and epileptic syndromes with complex partial seizures, not intractable, without status epilepticus; E11.65 Type 2 diabetes mellitus with hyperglycemia; F12.90 Cannabis use, unspecified, uncomplicated; G25.81 Restless legs syndrome; G47.33 Obstructive sleep apnea (adult) (pediatric); I11.0 Hypertensive heart disease with heart failure; I50.9 Heart failure, unspecified; M41.9 Scoliosis, unspecified; T38.0X5A Adverse effect of glucocorticoids and synthetic analogues, initial encounter; Y92.89 Other specified places as the place of occurrence of the external cause; Y95 Nosocomial condition; Z79.52 Long term (current) use of systemic steroids; Z82.49 Family history of ischemic heart disease and other diseases of the circulatory system; Z83.3 Family history of diabetes mellitus; Z85.858 Personal history of malignant neoplasm of other endocrine glands; Z87.891 Personal history of nicotine dependence; Z91.19 Patient's noncompliance with other medical treatment and regimen; Z99.81 Dependence on supplemental oxygen; Z88.5 Allergy status to narcotic agent; Z88.1 Allergy status to other antibiotic agents; Z88.0 Allergy status to penicillin
CPT/HCPCS: 36600; 71045; 80048; 80053; 81003; 82803; 82962; 83605; 83880; 84484; 85025; 87040; 87081; 93005; 94640; 94660; 99285; G0378; J1650; J1940; J2185; J7626; J1815; J2765; J2920; J7050; J7512